=== PATIENT | female | born 1990 | race Caucasian/White ===

== ENCOUNTER 2024-12-21 06:32 | Inpatient (IN) | payer BC ==
[~2024-12-21 06:32] MED LIST: Carboprost Tromethamine 250 MCG/1 mL Vial IM PRN; Ondansetron 4 MG/2 ML SDV IVPUSH PRN; Oxytocin/Lactated Ringers 30 UNIT/500 ML BAG IV SCH; Sodium Chloride 0.9% 10 ML Syringe FLUSH PRN; fentaNYL 100 MCG/2 ML SDV IVPUSH PRN
[2024-12-21] MEDS ORDERED: Misoprostol 25 MCG (1/4 of 100 MCG) Tab VAG SCH (08:45)
[2024-12-26] MEDS: Misoprostol 50 MCG (1/2 of 100 MCG) Tab PO PRN (10:28)
[2024-12-26 14:45] LABS: PLATELET COUNT,PLT 135.0 10^3/uL (150-450); RED BLOOD CELL COUNT 4.33 10^6/uL (4.2-5.4); WHITE BLOOD CELL COUNT,WBC 10.5 10^3/uL (5.0-10.0)
[2024-12-26] MEDS: Misoprostol 25 MCG (1/4 of 100 MCG) Tab VAG ONE (15:05)
[2024-12-26] MEDS: Lactated Ringers 1,000 ML IV ONE (17:59)
[2024-12-26] MEDS: Lactated Ringers 1,000 ML IV SCH (18:45)
[2024-12-27] MEDS: Oxytocin/Normal Saline 30 UNIT/500 ML BAG IV SCH (00:08)
[2024-12-27] MEDS ORDERED: Sodium Chloride 0.9% 10 ML Syringe FLUSH PRN (02:03)
[2024-12-27] MEDS ORDERED: Oxytocin 10 Units/1 ML SDV IM PRN (02:03)
[2024-12-27] MEDS ORDERED: Carboprost Tromethamine 250 MCG/1 mL Vial IM PRN (02:03)
[2024-12-27] MEDS: Prenatal Multivitamin with Calcium/Folic Acid/Iron Tab PO SCH (08:36)
[2024-12-27] MEDS: Benzocaine/Menthol 20%-0.5% Spray 78 GM Cannister TOP PRN (08:41)
[2024-12-27] MEDS: Acetaminophen/HYDROcodone 325-5 MG Tab PO ONE (21:44)
[2024-12-28 10:26] VITALS: BP 122/74; PULSE 76
== END 2024-12-28 09:45 | disposition home or self-care (01) | DRG 560 ==
LOC: EDSTATUS 06:32 → DL.OB 12-26 01:32 → OBSVTOIN 12-27 01:32
PROVIDERS: ADMIT Student in an Organized Health Care Education/Training Program; ATTEND Student in an Organized Health Care Education/Training Program
PROC: 10E0XZZ Delivery of Products of Conception, External Approach (ICD-10-PCS; principal; 2024-12-27)
PROC: 3E0DXGC Introduction of Other Therapeutic Substance into Mouth and Pharynx, External Approach (ICD-10-PCS; 2024-12-27)
PROC: 10907ZC Drainage of Amniotic Fluid, Therapeutic from Products of Conception, Via Natural or Artificial Opening (ICD-10-PCS; 2024-12-27)
PROC: 3E0P7VZ Introduction of Hormone into Female Reproductive, Via Natural or Artificial Opening (ICD-10-PCS; 2024-12-27)
PROC: 3E033VJ Introduction of Other Hormone into Peripheral Vein, Percutaneous Approach (ICD-10-PCS; 2024-12-27)
DX: O99.334 Smoking (tobacco) complicating childbirth (principal); Z3A.38 38 weeks gestation of pregnancy; Z37.0 Single live birth; O36.5930 Maternal care for other known or suspected poor fetal growth, third trimester, not applicable or unspecified; F17.200 Nicotine dependence, unspecified, uncomplicated
CPT/HCPCS: 36415; 51702; 59409; 85027; A9270-GY; J2590; J7120